=== PATIENT | male | born 1995 | race Caucasian/White ===

== ENCOUNTER 2016-09-12 02:49 | Emergency (ER) | payer OTHER ==
[~2016-09-12] VITALS: Ht 172.7 cm; Wt 102.0 kg
[~2016-09-12 02:49] MED LIST: ALBUTEROL SULF8.5 GM IH; CONCERTA18 MG PO; FLEXERIL10 MG PO; LORTAB 5-325 M1 EACH PO; NAPROSYN500 MG PO; PROZAC10 M1 PO; RISPERDAL2 MG; TYLENOL WITH C1 EACH PO
[2016-09-12 03:02] VITALS: BP 141/90
[2016-09-12 03:30] LABS: HEMATOCRIT 51.4 % (38.0-50.0); MCH 28.4 PG (29.0-34.0); MCV 83.3 FL (86-99); MEAN PLAT.VOLUME 11.2 uM^3 (9.0-12.4); PLATELET COUNT 297 K/uL (156-360); RBC DIS.WIDTH-CV 13.7 % (11.8-14.6); RBC DIS.WIDTH-SD 41.5 % (39-53); RED BLOOD COUNT 6.17 M/uL (4.00-5.50); WHITE BLOOD COUNT 12.1 K/uL (4.1-10.2)
[2016-09-12 03:35] LABS: CHLORIDE 106 mEq/L (99-109); POTASSIUM 3.9 mEq/L (3.7-5.4); SODIUM 143 mEq/L (136-147)
[2016-09-12 03:37] LABS: GLUCOSE 122 mg/dL (70-99)
[2016-09-12 03:39] LABS: ANION GAP 9 MEQ/L (2-14); TOTAL BILIRUBIN 0.8 mg/dL (0.0-1.0)
[2016-09-12 03:41] LABS: ALKALINE PHOSPHATASE 88 IU/L (3-129); GFR ESTIMATE (CALCULATED) > 59 mL/min/
[2016-09-12 03:42] LABS: UREA NITROGEN (BUN) 17 mg/dL (9-23)
== END 2016-09-12 06:17 | disposition home or self-care (01) ==
LOC: EME 02:49
DX: I88.0 Nonspecific mesenteric lymphadenitis (principal); R11.2 Nausea with vomiting, unspecified
CPT/HCPCS: 74177; 80053; 81003; 85027; 99281; 99284

== ENCOUNTER 2017-06-22 16:09 | Emergency (ER) | payer OTHER ==
[~2017-06-22] VITALS: Ht 172.7 cm; Wt 107.3 kg
[2017-06-22 17:11] LABS: HEMATOCRIT 49.6 % (38.0-50.0); MCH 28.5 PG (29.0-34.0); MCHC 34.3 G/DL (30.0-36.0); MCV 83.2 FL (86-99); PLATELET COUNT 269 K/uL (156-360); RBC DIS.WIDTH-SD 42.3 % (39-53); RED BLOOD COUNT 5.96 M/uL (4.00-5.50); WHITE BLOOD COUNT 9.8 K/uL (4.1-10.2)
[2017-06-22 17:21] LABS: ALBUMIN 4.4 g/dL (3.2-4.8)
[2017-06-22 17:22] LABS: CHLORIDE 112 mEq/L (99-109); POTASSIUM 4.2 mEq/L (3.7-5.4); SODIUM 143 mEq/L (136-147)
[2017-06-22 17:24] LABS: GLUCOSE 146 mg/dL (70-99); TOTAL PROTEIN 7.2 g/dL (6.4-8.3)
[2017-06-22 17:26] LABS: TOTAL BILIRUBIN 0.4 mg/dL (0.0-1.0)
[2017-06-22 17:27] LABS: ALKALINE PHOSPHATASE 79 IU/L (3-129)
[2017-06-22 17:28] LABS: CREATININE 1.1 mg/dL (0.6-1.3); GFR ESTIMATE (CALCULATED) > 59 mL/min/ (58.99-99999)
[2017-06-22 17:29] LABS: AST (GOT) 34 IU/L (2-34); UREA NITROGEN (BUN) 20 mg/dL (9-23)
[2017-06-22 17:31] LABS: ALT (GPT) 64 IU/L (3-49)
[2017-06-22 18:36] LABS: APPEARANCE CLEAR ((CLEAR)); BILIRUBIN NEGATIVE; BLOOD NEGATIVE; COLOR YELLOW ((YELLOW)); GLUCOSE (STRIP) NEGATIVE; KETONES NEGATIVE; LEUKOCYTES NEGATIVE; NITRITE NEGATIVE; PROTEIN (STRIP) NEGATIVE; SPECIFIC GRAVITY 1.029 (1.000-1.030); UCUL ADDED? NO
[2017-06-22] MEDS ORDERED: MOTRIN800 MG PO (21:22)
[2017-06-22] MEDS ORDERED: ZOFRAN ODT4 MG PO (21:22)
[2017-06-22] MEDS ORDERED: BENTYL20 MG PO (22:17)
[2017-06-22 22:48] VITALS: BP 140/81
== END 2017-06-22 22:50 | disposition home or self-care (01) ==
LOC: EME 16:09
DX: R10.31 Right lower quadrant pain (principal); R11.2 Nausea with vomiting, unspecified; K76.0 Fatty (change of) liver, not elsewhere classified; J45.909 Unspecified asthma, uncomplicated; F90.9 Attention-deficit hyperactivity disorder, unspecified type; F32.9 Major depressive disorder, single episode, unspecified
CPT/HCPCS: 74177; 80053; 81003; 85027; 99281; 99285; J0500; J1885; J2270; J2405; J7030

== ENCOUNTER 2017-06-25 13:08 | Emergency (ER) | payer OTHER ==
[~2017-06-25] VITALS: Ht 172.7 cm; Wt 105.3 kg
[~2017-06-25 13:08] MED LIST changes: +BENTYL20 MG PO; +MOTRIN800 MG PO; +ZOFRAN ODT4 MG PO
[2017-06-25 14:34] LABS: BASOPHIL (%) 0.2 % (0-1); EOSINOPHIL (%) 0.2 % (0-5); HEMATOCRIT 53.1 % (38.0-50.0); IMMATURE GRANULOCYTE (%) 0.5 % (0.0-0.7); LYMPHOCYTE (%) 2.5 % (15-42); LYMPHOCYTE COUNT 0.3 K/uL (1.0-2.8); MCH 28.7 PG (29.0-34.0); MCHC 33.9 G/DL (30.0-36.0); MCV 84.6 FL (86-99); MONOCYTE COUNT 0.7 K/uL (0-0.8); NEUTROPHIL (%) 91.6 % (45-76); NEUTROPHIL COUNT 11.9 K/uL (1.8-6.4); PLATELET COUNT 217 K/uL (156-360); RBC DIS.WIDTH-CV 13.9 % (11.8-14.6); RBC DIS.WIDTH-SD 42.5 % (39-53); RED BLOOD COUNT 6.28 M/uL (4.00-5.50)
[2017-06-25 14:42] LABS: ALBUMIN 4.5 g/dL (3.2-4.8); CHLORIDE 109 mEq/L (99-109); POTASSIUM 4.1 mEq/L (3.7-5.4); SODIUM 139 mEq/L (136-147)
[2017-06-25 14:44] LABS: GLUCOSE 116 mg/dL (70-99); TOTAL PROTEIN 7.4 g/dL (6.4-8.3)
[2017-06-25 14:47] LABS: TOTAL BILIRUBIN 0.9 mg/dL (0.0-1.0)
[2017-06-25 14:48] LABS: ALKALINE PHOSPHATASE 72 IU/L (3-129); CREATININE 1.1 mg/dL (0.6-1.3); GFR ESTIMATE (CALCULATED) > 59 mL/min/ (58.99-99999)
[2017-06-25 14:49] LABS: AST (GOT) 31 IU/L (2-34); UREA NITROGEN (BUN) 19 mg/dL (9-23)
[2017-06-25 14:51] LABS: ALT (GPT) 62 IU/L (3-49); LIPASE 19 U/L (1.0-51.0)
[2017-06-25 15:54] LABS: APPEARANCE CLEAR ((CLEAR)); BILIRUBIN NEGATIVE; BLOOD NEGATIVE; COLOR YELLOW ((YELLOW)); GLUCOSE (STRIP) NEGATIVE; KETONES NEGATIVE; LEUKOCYTES SMALL; NITRITE NEGATIVE; PROTEIN (STRIP) NEGATIVE; SPECIFIC GRAVITY 1.028 (1.000-1.030); UROBILINOGEN 0.2 MG/DL (0.2-1.0)
[2017-06-25 16:02] LABS: BACTERIA RARE /HPF; CALCIUM OXALATE CRYSTALS 1+ /HPF; EPITHELIAL CELLS RARE /HPF; MUCUS TRACE /LPF; UCUL ADDED? NO; WHITE BLOOD CELLS 0-5 /HPF (0-5)
[2017-06-25] MEDS ORDERED: CIPRO500 MG PO (17:01)
[2017-06-25] MEDS ORDERED: FLAGYL500 MG PO (17:01)
[2017-06-25 17:24] VITALS: BP 140/80
== END 2017-06-25 17:25 | disposition home or self-care (01) ==
LOC: EME 13:08
PROVIDERS: Emergency Medicine
DX: K52.9 Noninfective gastroenteritis and colitis, unspecified (principal); E86.0 Dehydration; R07.9 Chest pain, unspecified; K76.0 Fatty (change of) liver, not elsewhere classified; R16.2 Hepatomegaly with splenomegaly, not elsewhere classified
CPT/HCPCS: 74177; 80053; 81003; 83690; 85025; J2270; J2405; J7030